=== PATIENT | male | born 1960 | race Two or more races ===

== ENCOUNTER 2019-04-25 11:36 | Emergency (ER) | payer OTHER ==
[~2019-04-25] VITALS: Ht 172.7 cm; Wt 81.6 kg
[2019-04-25 11:58] VITALS: BP 141/82
[2019-04-25] MEDS ORDERED: DIPH,PERTUSS(ACELL),TET VAC/PF 0.5 ML IM-VACC ONE ×2 (12:30→13:54)
[2019-04-25] MEDS ORDERED: BUPIVACAINE/PF 0.25% INFIL ONE (12:30)
[2019-04-25] MEDS ORDERED: AMPICILLIN/SULBACTAM 3 GM in SODIUM CHLORIDE 0.9% 100 ML IV ONE (12:30)
[2019-04-25] MEDS ORDERED: LIDOCAINE-MPF 1%, 5ML INFIL ONE (12:30)
[2019-04-25] MEDS ORDERED: SODIUM CHLORIDE FLUSH 10ML SYR IVF ONE (12:30)
--- NOTE | 2019-04-25 12:32 | NUR ---
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
[2019-04-25] MEDS ORDERED: LIDOCAINE-MPF 1%, 5ML ONE (13:13)
[2019-04-25] MEDS ORDERED: CEFAZOLIN 1,000 MG ONE (13:15)
[2019-04-25] MEDS ORDERED: LIDOCAINE-MPF 2% ,5ML ONE (13:15)
[2019-04-25] MEDS ORDERED: LISINOPRIL (13:24)
[2019-04-25] MEDS ORDERED: OXYcodone/APAP 10/325MG TABLET ONE (13:54)
[2019-04-25] MEDS ORDERED: NEOSPORIN OINT. PKT 1 PACKET ONE (13:57)
[2019-04-25] MEDS ORDERED: OXYcodone/APAP 10/325MG TABLET PO ONE (14:00)
[2019-04-25] MEDS ORDERED: CEFAZOLIN 1,000 MG IM ONE (14:00)
== END 2019-04-25 15:53 | disposition home or self-care (01) ==
LOC: ED 13:39
DX: S62.522B Displaced fracture of distal phalanx of left thumb, initial encounter for open fracture (principal); S61.012A Laceration without foreign body of left thumb without damage to nail, initial encounter; W31.89XA Contact with other specified machinery, initial encounter; Y93.89 Activity, other specified; Y92.69 Other specified industrial and construction area as the place of occurrence of the external cause; Y99.8 Other external cause status
CPT/HCPCS: 12041; 73140; 90471; 90715; 96372; 99284; J0690